=== PATIENT | male | born 1965 | race Caucasian/White ===

== ENCOUNTER 2020-05-30 12:22 | Emergency (ER) | payer BC ==
[~2020-05-30] VITALS: Ht 193 cm; Wt 97.5 kg
--- NOTE | 2020-05-30 12:27 | NUR ---
Brought in by [facility] 81 for syncopal episode, and positive orthostatics, patient denied falling and states went to lay down and call 911, [facility] sinus surgery 1 month ago
[2020-05-30] MEDS ORDERED: IV NORMAL SALINE 1000 ML BAG IV ONE (12:30)
--- NOTE | 2020-05-30 12:30 | NUR ---
at bedside for assessment
[2020-05-30 13:01] LABS: BASOPHILS % (AUTO) 0.4 % (0.0-2.0); EOSINOPHILS # (AUTO) 0.1 K/uL (0.0-0.7); EOSINOPHILS % (AUTO) 1.6 % (0.0-7.0); HEMATOCRIT 28.7 % (36.7-47.1); HEMOGLOBIN 9.6 g/dL (12.5-16.3); LYMPHOCYTES # (AUTO) 1.7 K/uL (20.0-40.0); LYMPHOCYTES % (AUTO) 26.5 % (20.5-51.5); MEAN CORPUSCULAR HEMOGLOBIN 30.7 uug (23.8-33.4); MEAN CORPUSCULAR HGB CONC 34 g/dL (32.5-36.3); MEAN CORPUSCULAR VOLUME 91.7 fL (73.0-96.2); MONOCYTES # (AUTO) 0.5 K/uL (2.0-10.0); MONOCYTES % (AUTO) 8.4 % (0.0-11.0); NEUTROPHILS % (AUTO) 63.1 % (38.5-71.5); PLATELET COUNT (AUTO) 242 K/uL (152-348); RED BLOOD CELL COUNT(AUTO) 3.13 MIL/uL (4.06-5.63); WHITE BLOOD COUNT (AUTO) 6.4 K/uL (3.6-10.2)
[2020-05-30 13:05] LABS: POTASSIUM 3.9 mmol/L (3.5-5.1)
[2020-05-30 13:11] LABS: BILIRUBIN,DIRECT 0.1 mg/dL (0.0-0.2); BILIRUBIN,TOTAL 0.3 mg/dL (0.2-1.0); TOTAL PROTEIN, SERUM 6.3 g/dL (6.4-8.2)
[2020-05-30 14:19] LABS: *BILIRUBIN,URIN NEGATIVE (NEGATIVE); *BLOOD, URINE NEGATIVE (NEGATIVE); *CLARITY,URINE CLEAR (CLEAR); *COLOR,URINE YELLOW (YELLOW); *KETONES,URINE 1+ (NEGATIVE); *UROBILINOGEN,URINE 0.2 E.U./dl (NORMAL); LEUKOCYTE ESTERASE ,URINE NEGATIVE (NEGATIVE); NITRITE, URINE NEGATIVE (NEGATIVE); PH,URINE 7.5 (5.0-8.0); UGLUCOSE NEGATIVE (NEGATIVE)
[2020-05-30 14:27] VITALS: BP 115/68
--- NOTE | 2020-05-30 14:28 | NUR ---
Patient discharged to home in stable condition. no signs of acute distress, requested to go home, states he n longer feels dizzy. Written and verbal after care instructions given. Patient verbalizes understanding of instructions. Stressed follow up or return to ER for worsening s/s.
[2020-05-30 14:35] LABS: BACTERIA,URINE NONE SEEN /HPF (NONE SEEN); RBC,URINE 0-3 /HPF (0-3); SQUAMOUS EPITHELIAL CELL,UR FEW /HPF (NONE SEEN); WBC,URINE 0-3 /HPF (0-3)
[2020-05-30 14:36] LABS: URINE AMORPHOUS PHOSPHATES FEW /HPF
== END 2020-05-30 14:30 | disposition home or self-care (01) ==
LOC: ER 12:23
DX: R55 Syncope and collapse (principal); D64.9 Anemia, unspecified; R79.89 Other specified abnormal findings of blood chemistry
CPT/HCPCS: 36415; 70030-TC; 71045; 85025; 85730; 86850; 86900; 86901; 86920; 93005; A4663; J7030